=== PATIENT | female | born 2000 | race Two or more races ===

== ENCOUNTER 2018-01-11 22:37 | Emergency (ER) | payer MEDICAID ==
[~2018-01-11] VITALS: Ht 154.9 cm; Wt 92.5 kg
[2018-01-11 23:12] VITALS: BP 135/75
[2018-01-12 00:14] LABS: Basophils # (auto) 0.1 uL; Basophils % (auto) 0.9 % (0.0-2.0); Eosinophils # (auto) 0.1 uL; Eosinophils % (auto) 0.6 % (0.0-7.0); Hematocrit 43.4 % (36.0-46.0); Hemoglobin 14.2 g/dL (12.2-16.2); Lymphocytes % (auto) 23.4 % (10.0-50.0); Mean Corpuscular Hemoglobin 29.1 pg (28.0-32.0); Mean Corpuscular Hgb Conc. 32.7 g/dL (32.0-36.0); Monocytes # (auto) 0.8 uL; Neutrophils # (auto) 8.8 uL; Neutrophils % (auto) 69.1 % (37.0-80.0); Nucleated Red Blood Cells % 0.1 %; Platelet Count (auto) 252 10^3/uL (140-450); Red Blood Cells 4.88 10^6/uL (4.0-5.20); Red Cell Distribution Width 13.9 % (11.8-14.3); White Blood Cell 12.7 10^3/uL (4.4-10.8)
[2018-01-12 00:30] LABS: Albumin 3.9 g/dL (3.4-5.0); BUN/Creatinine Ratio 9.8; Calcium 9.1 mg/dL (8.5-10.1); Potassium 3.9 mmol/L (3.5-5.1)
[2018-01-12 00:33] LABS: Bilirubin, Total 0.3 mg/dL (0.2-1.0); Total Protein 8.1 g/dL (6.4-8.2)
[2018-01-12 01:09] LABS: Urine Bacteria NONE SEEN /hpf (None Seen); Urine Blood TRACE /uL (Negative); Urine Specific Gravity 1.021 (1.001-1.035); Urine WBC 2 /hpf (0 - 5)
== END 2018-01-12 02:00 | disposition left against medical advice (07) ==
LOC: ER 22:37
DX: R10.9 Unspecified abdominal pain (principal); Z53.21 Procedure and treatment not carried out due to patient leaving prior to being seen by health care provider
CPT/HCPCS: 36415; 80053; 81001; 82150; 83690; 84702; 85025

== ENCOUNTER 2018-11-28 20:22 | Emergency (ER) | payer SELFPAY ==
[~2018-11-28] VITALS: Ht 154.9 cm; Wt 95.7 kg
[2018-11-28 20:41] VITALS: BP 133/91
== END 2018-11-28 22:53 | disposition left against medical advice (07) ==
LOC: ER 20:27
DX: R11.2 Nausea with vomiting, unspecified (principal); Z53.21 Procedure and treatment not carried out due to patient leaving prior to being seen by health care provider